=== PATIENT | female | born 1985 | race Caucasian/White ===

== ENCOUNTER 2017-10-14 23:34 | Emergency (ER) | payer BC, OTHER ==
[2017-10-15 00:29] LABS: APPEARANCE,URINE CLEAR; BILIRUBIN,URINE NEGATIVE (NEGATIVE); COLOR,URINE COLORLESS; GLUCOSE, URINE NEGATIVE (NEGATIVE); KETONES,URINE NEGATIVE (NEGATIVE); LEUKOCYTE ESTERASE,URINE MODERATE (NEGATIVE); NITRITE,URINE NEGATIVE (NEGATIVE); PROTEIN,URINE NEGATIVE (NEGATIVE); URINE SPECIFIC GRAVITY 1.002; UROBILINOGEN,URINE NEGATIVE mg/dL (<2.0)
[2017-10-15] MEDS ORDERED: KETOROLAC TROMETHAMINE INJ/PF 30 MG/1 ML SDV IV ONE (01:12)
[2017-10-15] MEDS ORDERED: MORPHINE SULFATE 10 MG/ML INJ IV ONE ×2 (01:13→02:21)
[2017-10-15] MEDS ORDERED: NORMAL SALINE 1000 ML 1,000 ML IV ONE (01:13)
--- NOTE | 2017-10-15 01:17 | ER Document Report ---
ED GI/ - General Chief Complaint: Flank Pain Stated Complaint: FLANK PAIN Time Seen by Provider: 10/15/17 01:05 Mode of Arrival: Ambulatory Information source: Patient TRAVEL OUTSIDE OF THE [place] IN LAST 30 DAYS: No - HPI Notes: 10/15/17 01:14 32-year-old female with history of hypothyroidism presents with nausea vomiting and bilateral flank pain that has been present since yesterday. She recently had been treated for a urinary tract infection with Cipro which she has completed. She was having dysuria with that but it has resolved after 2-3 days of antibiotics. Pain is fairly severe and equal in both flanks radiating slightly around to the front but definitely more in the back. She does have some known gallbladder issues but this does not feel like that. Denies fever. Family history of kidney stones but she has not had one. Denies diarrhea. No prior abdominal or pelvic surgeries. - Related Data Allergies/Adverse Reactions: No Known Allergies Allergy (Unverified 08/12/16 05:51) Past Medical History - Social History Smoking Status: Never Smoker Family History: Reviewed & Not Pertinent, Other - Kidney stones Patient has suicidal ideation: No Patient has homicidal ideation: No Renal/ Medical History: Denies: Hx Peritoneal Dialysis Review of Systems - Review of Systems -: Yes All other systems reviewed and negative Physical Exam - Vital signs Notes: See nurse's note - Notes Notes: GENERAL: VS as per nursing doc. Well-appearing, well-nourished and in no acute distress. HEAD: Atraumatic, normocephalic. EYES: Pupils equal round and reactive to light, extraocular movements intact, sclera anicteric, no conjunctival injection or discharge. ENT: Moist mucous membranes. NECK: Normal range of motion, supple without lymphadenopathy. LUNGS: Breath sounds clear to auscultation bilaterally and equal. No wheezes rales or rhonchi. HEART: Regular rate and rhythm without murmurs. ABDOMEN: Soft, non-tender, normoactive bowel sounds. No guarding, no rebound. No masses appreciated. No [place] sign. BACK: Mild bilateral CVA tenderness. EXTREMITIES: No edema. NEUROLOGICAL: Normal speech. Normal gait. No gross cerebellar abnormalities. PSYCH: Normal mood, normal affect. SKIN: Warm, dry, normal turgor, no lesions noted. Course - Re-evaluation Re-evalutation: 10/15/17 02:22 Symptoms and exam are consistent with pyelonephritis. We discussed differential also includes kidney stones but with her pain being symmetrical in bilateral, felt this would be less likely so after discussion, we deferred CT scan. She has improved. We will place her on Macrobid and await culture. She will return if she is worsening or for any other problems. At this time, we will discharge the patient with return precautions and follow-up recommendations discussed and understood. Verbal discharge instructions given at the bedside and opportunity for questions given and answered. Medication warnings reviewed. Patient is in agreement with this plan and has verbalized understanding of return precautions and the need for primary care follow-up in the next 24-72 hours. - Laboratory Result Diagrams: 10/15/17 01:35 10/15/17 01:35 Laboratory results interpreted by me: 10/15/17 10/15/17 00:00 01:35 WBC 11.2 H Urine Blood SMALL H Ur Leukocyte Esterase MODERATE H Discharge - Discharge Clinical Impression: Pyelonephritis Condition: Good Disposition: HOME, SELF-CARE Instructions: Toradol Injection ([facility]), Pyelonephritis ([facility]), Oral Narcotic Medication ([facility]), Antibiotic Therapy ([facility]) Additional Instructions: Return for worsening or concern, inability to keep the medications down. A urine culture will take a couple of days to get the final result. Call to arrange follow-up with your primary care physician. Prescriptions: Promethazine HCl [Phenergan 25 mg Tablet] 1 tab PO Q4HP PRN #10 tablet PRN Reason: Acetaminophen with Codeine [Tylenol #3 Tablet] 1 - 2 each PO Q6HP PRN #14 tablet PRN Reason: For Pain Nitrofurantoin/Nitrofuran Mac [Macrobid 100 mg Capsule] 1 tab PO BID #20 capsule Referrals: SAMMY CORTEZ MD [Primary Care Provider] - Follow up in 3-5 days
[2017-10-15] MEDS ORDERED: CEFTRIAXONE 1 GM/D5W RTU 1 GM/50 ML RTUPB IV ONE (01:46)
[2017-10-15 02:08] LABS: ABSOLUTE EOSINOPHILS # (AUTO) 0.3 10^3/uL (0.0-0.6); ABSOLUTE LYMPHOCYTES (AUTO) 2.3 10^3/uL (0.5-4.7); ABSOLUTE MONOCYTES (AUTO) 0.9 10^3/uL (0.1-1.4); ABSOLUTE NEUT (AUTO) 7.7 10^3/uL (1.7-8.2); BASOPHILS % (AUTO) 0.1 % (0-2); EOSINOPHILS % (AUTO) 2.6 % (0-6); HEMATOCRIT 38.4 % (36.0-47.0); HEMOGLOBIN 13.1 g/dL (12.0-15.5); LYMPHOCYTES % (AUTO) 20.2 % (13-45); MEAN CORPUSCULAR HEMOGLOBIN 29.2 pg (27.0-33.4); MEAN CORPUSCULAR VOLUME 86 fl (80-97); MONOCYTES % (AUTO) 8.4 % (3-13); PLATELET COUNT 277 10^3/uL (150-450); RED BLOOD COUNT 4.47 10^6/uL (3.72-5.28); RED CELL DISTRIBUTION WIDTH 12.8 % (11.5-14.0); SEGMENTED NEUTROPHILS % (AUTO) 68.7 % (42-78); TOTAL CELLS COUNTED % (AUTO) 100 %; WHITE BLOOD COUNT 11.2 10^3/uL (4.0-10.5)
[2017-10-15 02:10] LABS: ALANINE AMINOTRANSFERASE 22 U/L (9-52); ALBUMIN 4.3 g/dL (3.5-5.0); ALKALINE PHOSPHATASE 84 U/L (38-126); ANION GAP 11 (5-19); ASPARTATE AMINO TRANSFERASE 17 U/L (14-36); BILIRUBIN,DIRECT 0.2 mg/dL (0.0-0.4); BILIRUBIN,TOTAL 0.4 mg/dL (0.2-1.3); BLOOD UREA NITROGEN 16 mg/dL (7-20); CARBON DIOXIDE 26 mmol/L (22-30); CHLORIDE 103 mmol/L (98-107); GLUCOSE 86 mg/dL (75-110); SODIUM 139.8 mmol/L (137-145); TOTAL PROTEIN 6.8 g/dL (6.3-8.2)
[2017-10-15] MEDS ORDERED: ONDANSETRON HCL INJ/PF 4 MG/2 ML SDV IV ONE (02:21)
[2017-10-15] MEDS ORDERED: NITROFURANTOIN MONOHYD/M-CRYST 100 MG CAPSULE PO ONE (02:23)
[2017-10-15] MEDS ORDERED: CEFTRIAXONE INJ 1000 MG VIAL IV ONE (02:42)
== END 2017-10-15 03:45 | disposition home or self-care (01) ==
LOC: ER 23:34
DX: N12 Tubulo-interstitial nephritis, not specified as acute or chronic (principal); R10.9 Unspecified abdominal pain; R11.2 Nausea with vomiting, unspecified
CPT/HCPCS: 96376; 99284; 96361; 96375; 96365; 36415; 87086; 85025; 81025; 87088; 80053; 81001; 87186; J1885; J2270; J0696; J2405; J7030; J8499